=== PATIENT | female | born 1965 | race Caucasian/White ===

== ENCOUNTER 2016-04-02 08:48 | Emergency (ER) | payer BC ==
[~2016-04-02] VITALS: Ht 167.6 cm; Wt 75.0 kg
[2016-04-02 08:51] VITALS: Ht 167.6 cm; Wt 75.0 kg
[2016-04-02] MEDS ORDERED: ONDANSETRON 4 MG INJ IV STA (09:15)
[2016-04-02] MEDS ORDERED: FAMOTIDINE 20 MG INJ IV STA (09:15)
[2016-04-02] MEDS ORDERED: KETOROLAC 30 MG INJ IV STA (09:15)
[2016-04-02] MEDS ORDERED: SOD CHLORIDE 0.9% 1,000 ML IV STA (09:15)
[2016-04-02 09:29] LABS: BASOPHILS % 0.2 % (0.0-2.0); EOSINOPHILS # 0.1 10^3/ul (0.0-0.5); EOSINOPHILS % 0.9 % (0.0-7.0); HEMATOCRIT 40.3 % (37.0-47.0); HEMOGLOBIN 13.8 g/dl (12.0-16.0); LYMPHOCYTES % 14.7 % (15.0-51.0); MEAN CORPUSCULAR HEMOGLOBIN 29.4 pg (29.0-33.0); MEAN CORPUSCULAR HGB CONC 34.2 g/dl (32.0-37.0); MEAN CORPUSCULAR VOLUME 86.1 fl (82.0-101.0); MEAN PLATELET VOLUME 7.5 fl (7.4-10.4); MONOCYTE # 0.3 10^3/ul (0.3-0.9); MONOCYTES % 4.7 % (0.0-11.0); NEUTROPHIL # 5.6 10^3/ul (1.6-7.5); NEUTROPHILS % 79.5 % (39.0-77.0); PLATELET COUNT 240 10^3/UL (140-440); RED BLOOD COUNT 4.68 10^6/ul (4.20-5.40); RED CELL DISTRIBUTION WIDTH 13.1 % (11.5-14.5)
[2016-04-02 09:33] LABS: CONDITION 1
[2016-04-02 09:38] LABS: ALBUMIN 4.2 g/dl (3.3-4.9)
[2016-04-02 09:39] LABS: CHLORIDE 103 mmol/L (97-110); POTASSIUM 4.3 mmol/L (3.5-5.1); SODIUM 144 mmol/L (135-144)
[2016-04-02 09:41] LABS: ALBUMIN/GLOBULIN RATIO 1.35; ALKALINE PHOSPHATASE 63 IU/L (42-121); AMYLASE 92 U/L (11-123); ANION GAP 19 (8-16); ASPARTATE AMINO TRANSFERASE 19 IU/L (15-46); BILIRUBIN,INDIRECT 0.3 mg/dl (0-1.1); BILIRUBIN,TOTAL 0.3 mg/dl (0.2-1.3); BLOOD UREA NITROGEN 22 mg/dl (7-20); CARBON DIOXIDE 26 mmol/L (21-31); CREATININE 0.73 mg/dl (0.44-1.00); TOTAL PROTEIN 7.3 g/dl (6.1-8.1)
[2016-04-02 09:42] LABS: ALANINE AMINOTRANSFERASE 23 IU/L (13-69); CALCIUM 9.5 mg/dl (8.4-10.2); GLUCOSE 96 mg/dl (70-220)
[2016-04-02 09:48] LABS: INR 1.03; PARTIAL THROMBOPLASTIN TIME 25.7 Sec (25.0-35.0); PROTIME 13.5 Sec (12.2-14.2); PT RATIO 1.1
[2016-04-02 09:54] LABS: TROPONIN-I < 0.012 ng/ml (0.00-0.12)
[2016-04-02 10:37] VITALS: BP 135/75; PULSE 57; RESP 20; TEMP 98.3
[2016-04-02] MEDS ORDERED: ONDA4TAB14 PO (10:37)
[2016-04-02] MEDS ORDERED: IBUP-1542 PO (10:37)
--- NOTE | 2016-04-02 10:47 | ERD ---
ER Documentation Chief Complaint Date/Time DATE: 04/02/16 TIME: 10:39 Chief Complaint AP STARTED THIS AM. TAKING HYDROXINE NKA HPI This is a very pleasant 50-year-old female that presents to the emergency department with a sudden onset of abdominal cramping that occurred at 6:30 AM, 3 hours prior to arrival. The patient indicated she had an episode of loose watery nonbloody stools which relieved the cramping. She started to get ready for work and then all of a sudden the pain returned which she described as diffuse lower abdominal cramping which was relieved after she had another bowel movement. The patient then started to have multiple episodes of nonbloody nonbilious emesis with subcutaneous loose watery stools. She stated the abdominal cramping intensified to 10 out of 10. The patient denies any radiation of the abdominal cramping to the back or lower extremities. She had no fevers no shaking no chills. She denies any shortness of breath at rest or exertion. She states she has never had any similar symptoms in the past. The last meal the patient had was roughly at 9 PM yesterday evening which was a casserole she had made and reheated. ROS All systems reviewed and are negative except as per history of present illness. Medications Home Meds Active Scripts Ibuprofen* (Motrin*) 600 Mg Tab, 600 MG PO Q8, #30 TAB Prov:TG JHAVERI 04/02/16 Ondansetron (Ondansetron Odt) 4 Mg Tab.rapdis, 4 MG PO Q6H Y for NAUSEA AND/OR VOMITING, #20 TAB Prov:TG JHAVERI 04/02/16 Allergies Allergies: Coded Allergies: No Known Allergy (Unverified , 04/02/16) PMhx/Soc History of Surgery: No Anesthesia Reaction: No Hx Neurological Disorder: No Hx Respiratory Disorders: No Hx Cardiac Disorders: No Hx Psychiatric Problems: No Hx Miscellaneous Medical Probl: Yes (Rash ) Hx Alcohol Use: No Hx Substance Use: No Hx Tobacco Use: No Smoking Status: Never smoker Physical Exam Vitals Vital Signs Date Time Temp Pulse Resp B/P Pulse Ox O2 Delivery O2 Flow Rate FiO2 04/02/16 08:51 98.0 60 18 120/67 94 Physical Exam Constitutional:Well-developed. Well-nourished. HEENT:Normocephalic. Atraumatic.Pupils were equal round reactive to light. Dry mucous membranes.No tonsillar exudates. No angioedema. Neck: No nuchal rigidity. No lymphadenopathy. No posterior cervical spine tenderness or step-offs. Respiratory: Not using accessory muscles of respiration.Lungs were clear to auscultation bilaterally. No rhonchi. No rales. No wheezing. Cardiovascular: Regular rate regular rhythm.No murmurs. No rubs were appreciated.S1, S2 normal. Distal pulses are palpable 2+ bilaterally. GI: Abdomen was soft. Nontender. Non Distended. No pulsatile abdominal masses or bruits. No rebound. No guarding. Bowel sounds were present and normal. No tenderness in the right lower quadrant over McBurney's point. Psoas sign negative. Obturator sign negative. Muscle skeletal: Full range of motion of both the upper and lower extremities bilaterally.Normal muscle tone.No assymetrical calf tenderness or swelling. Skin: No petechia, no purpura. No lesions on the palms or the soles of the feet. No maculopapular rash. NEURO: Patient was alert, awake, orientated x3.No facial droop. Gait observed and normal with no ataxia.Speech had regular rate and rhythm. No focal neurological deficits. Result Diagram: 04/02/1622 04/02/1622 Results 24 hrs Laboratory Tests Test 04/02/16 09:22 Activated Partial Thromboplast Time 25.7Sec Alanine Aminotransferase (ALT/SGPT) 23IU/L Albumin 4.2g/dl Albumin/Globulin Ratio 1.35 Alkaline Phosphatase 63IU/L Amylase Level 92U/L Anion Gap 19 Aspartate Amino Transf (AST/SGOT) 19IU/L Basophils # 0.010^3/ul Basophils % 0.2% Blood Urea Nitrogen 22mg/dl Calcium Level 9.5mg/dl Carbon Dioxide Level 26mmol/L Chloride Level 103mmol/L Creatinine 0.73mg/dl Direct Bilirubin 0.00mg/dl Eosinophils # 0.110^3/ul Eosinophils % 0.9% Globulin 3.10g/dl Glucose Level 96mg/dl Hematocrit 40.3% Hemoglobin 13.8g/dl INR International Normalized Ratio 1.03 Indirect Bilirubin 0.3mg/dl Lipase 76U/L Lymphocytes # 1.010^3/ul Lymphocytes % 14.7% Mean Corpuscular Hemoglobin 29.4pg Mean Corpuscular Hemoglobin Concent 34.2g/dl Mean Corpuscular Volume 86.1fl Mean Platelet Volume 7.5fl Monocytes # 0.310^3/ul Monocytes % 4.7% Neutrophils # 5.610^3/ul Neutrophils % 79.5% Nucleated Red Blood Cells # 0.010^3/ul Nucleated Red Blood Cells % 0.0/100WBC Platelet Count 66721^3/UL Potassium Level 4.3mmol/L Prothrombin Time 13.5Sec Prothrombin Time Ratio 1.1 Red Blood Count 4.6810^6/ul Red Cell Distribution Width 13.1% Sodium Level 144mmol/L Total Bilirubin 0.3mg/dl Total Protein 7.3g/dl Troponin I < 0.012ng/ml White Blood Count 7.010^3/ul Current Medications Medications (Trade) Dose Ordered Sig/Gopi Route PRN Reason Start Time Stop Time Status Last Admin Dose Admin Sodium Chloride (NS) 1,000 ml @ 1,000 mls/hr Q1H STAT IV 04/02/16 09:15 04/02/16 10:14 DC 04/02/16 09:39 Ondansetron HCl (Zofran Inj) 4 mg ONCE STAT IV 04/02/16 09:15 04/02/16 09:16 DC 04/02/16 09:39 Famotidine (Pepcid Iv) 20 mg ONCE STAT IV 04/02/16 09:15 04/02/16 09:17 DC 04/02/16 09:40 Ketorolac Tromethamine (Toradol) 30 mg ONCE STAT IV 04/02/16 09:15 04/02/16 09:17 DC 04/02/16 09:40 Procedures/MDM This patient presented to the emergency department with abdominal pain and was seen and evaluated by myself. My differential diagnosis included but was not limited to abdominal aortic aneurysm, appendicitis, pancreatitis, perforated peptic ulcer, perforated viscus, Boerhaaves syndrome or visceral pain such as diverticulitis, DKA, esophagitis, hepatitis or bowel obstruction. The patient was placed on a quilting supervisor, continuous pulse oximetry, and IV access was established by nursing staff. The patient received intravenous Toradol Zofran and a liter bolus of normal saline with complete resolution of her symptoms. 12 Lead EKG tracing ordered and reviewed by myself showed in order to rule out atypical myocardial infarction: Sinus bradycardia 59 bpm and no arrhythmia. VT interval normal. QRS duration normal. No ST segment elevation No ST segment depression. No changes consistent with acute ischemia. I did not feel is necessary at this time to obtain any radiographic imaging or CT scans as I felt the patient's symptoms were likely result of a viral etiology. The patient was able to tolerate oral intake. There is no leukocytosis or severe electrolyte abnormalities She has good outpatient follow-up as she sees her primary care physician Dr. Lai and felt comfortable following up with her in the next several days. She states she recently saw Dr. Lai 2 days ago and had outpatient blood work performed as she has been having periorbital swelling in the morning and had been placed on low-dose steroids which she recently completed. The patient had no evidence of angioedema or an allergic reaction during this hospital visit. The patient was discharged home in fair condition. They were instructed to return to the emergency department at any time if there was any worsening of their condition. The patient stated they would follow up with their PCP in the next 24-48 hours to initiate a suitable medication regimen under the care of their PCP as well as to allow their PCP to monitor any drug reactions. The patient was discharged home with prescriptions after they gave informed consent to the new medication. They were also fully informed by myself on the adverse effects and adverse drug interactions in order to provide adequate safeguards to prevent possible adverse reactions to medications. Departure Diagnosis: Primary Impression: Nausea vomiting and diarrhea Condition: Fair Patient Instructions: Vomiting And Diarrhea, Nonspecific (Adult) TG JHAVERI Apr 02, 2016 10:46
== END 2016-04-02 10:51 | disposition home or self-care (01) ==
LOC: E/R 08:48
DX: R11.2 Nausea with vomiting, unspecified (principal); R40.2252 Coma scale, best verbal response, oriented, at arrival to emergency department; R19.7 Diarrhea, unspecified; R40.2142 Coma scale, eyes open, spontaneous, at arrival to emergency department; R40.2362 Coma scale, best motor response, obeys commands, at arrival to emergency department
CPT/HCPCS: 80053; 82150; 83690; 84484; 85025; 85610; 85730; 93005; 96374; 96375; 99284; J1885; J2405; J7030